=== PATIENT | female | born 1940 | race Caucasian/White ===

== ENCOUNTER 2016-07-05 05:35 | Inpatient (IN) | payer MEDICARE, BC ==
[~2016-07-05 05:35] MED LIST: ALLOPURINOL300 M1 PO; ASPIRIN81 M1 PO; AVAPRO75 MG PO; BONIVA PO; BONIVA150 MG; CARDIZEM CD180 MG PO; CIPRO PO; CO Q-10100 M2 PO; CRESTOR5 MG; DEMADEX20 M1 PO; DEMADEX20 MG; DIETHYLPROPION PO; GABAPENTIN300 MG PO; GLUCOPHAGE500 M3 PO; K-DUR10 MEQ; KLOR-CON 1010 ME1 PO; KLOR-CON M2020 MEQ; LEXAPRO20 M2 PO; LIPITOR10 M1 PO; LIPITOR10 MG; LOSARTAN POTASS25 MG PO; LOVENOX40 MG/0.4 SQ; MULTIVITAMIN; NABUMETONE500 M1 PO; NATURAL TEARS; NEXIUM40 M1 PO; NORCO 5/3251 TAB PO; NORVASC5 MG PO; OMEGA 31 CAP PO; OS-CAL 500+D31 EAC1 PO; PLAVIX75 MG; PREDNISONE10 MG PO; PROZAC10 MG PO; PROZAC20 MG; PROZAC20 MG PO; RESTASIS1 EACH OP; RESTASIS32 EA; SPIRONOLACTONE25 M2 PO; STOOL SOFTENER1 EAC4 PO; TYLENOL325 M2 PO; [UNRECOGNIZED DRUG - OTHER]
[2016-07-06 05:17] LABS: BASO % 0.2 % (0-2); EOS % 0.1 % (0-7); HGB-HEMOGLOBIN 11.1 gm/dl (12.0-15.5); IMMATURE GRANULOCYTES ABSOLUTE 0.03 tho/cmm (0-0.03); IMMATURE GRANULOCYTES PERCENT 0.3 % (0-0.3); LYMPH % 17.1 % (20-45); LYMPH ABSOLUTE COUNT 1.8 tho/cmm (0.8-4.5); MCH (MEAN CORPUSCULAR HGB) 30.1 pg (28.0-32.0); MCHC MEAN CORPUSCULAR HGB CONC 32.6 % (32.0-36.0); MCV (MEAN CELL VOLUME) 92.1 fl (82.0-96.0); MEAN PLATELET VOLUME 10.4 cmc (9.4-12.4); MONO % 11.3 % (0-12); MONOCYTE ABSOLUTE COUNT 1.2 tho/cmm (0.0-1.2); NEUTROPHIL ABSOLUTE COUNT 7.5 tho/cmm (1.6-8.0); NEUTROPHIL-AUTOMATED 7.5 tho/cmm (1.6-8.0); PLATELET COUNT 195 tho/cmm (150-450); RED BLOOD COUNT 3.69 mil/cmm (4.00-5.20); RED CELL DISTRIBUTION WIDTH 13.8 % (12.4-16.4); WHITE BLOOD COUNT 10.5 tho/cmm (4.0-10.0)
[2016-07-06 05:27] LABS: ANION GAP 11 mmol/L (0-20); BLOOD UREA NITROGEN 16 mg/dl (6-24); CALCIUM 8.6 mg/dl (8.5-10.5); CARBON DIOXIDE-VENOUS 29 mmol/L (22-32); CHLORIDE 108 mmol/l (96-110); CREATININE 0.97 mg/dl (0.50-1.10); GLUCOSE 110 mg/dL (70-110); POTASSIUM 4.2 mmol/L (3.7-5.1); SODIUM 144 mmol/L (135-145); eGFR VALUE FOR BLACK 66 mL/Min
[2016-07-08] MEDS ORDERED: NORCO 5-325 TA1 EACH PO (12:46)
[2016-07-08] MEDS ORDERED: DULCOLAX10 MG PR (12:50)
[2016-07-08] MEDS ORDERED: MIRALAX17 G2 PO (12:51)
[2016-11-14] MEDS ORDERED: BYSTOLIC5 M1 PO (10:47)
[2016-11-14] MEDS ORDERED: NEURONTIN300 M1 PO (10:48)
== END 2016-07-08 13:36 | DRG 460 ==
LOC: SHSA 05:35 → ORE 07:33 → PACU 12:29 → 5EB 13:40
PROVIDERS: Internal Medicine; ADMIT Orthopaedic Surgery Orthopaedic Surgery of the Spine
PROC: 0SG00A0 Fusion of Lumbar Vertebral Joint with Interbody Fusion Device, Anterior Approach, Anterior Column, Open Approach (ICD-10-PCS; principal; 2016-07-05)
PROC: 0ST20ZZ Resection of Lumbar Vertebral Disc, Open Approach (ICD-10-PCS; 2016-07-05)
PROC: 0QB00ZZ Excision of Lumbar Vertebra, Open Approach (ICD-10-PCS; 2016-07-05)
DX: M51.16 Intervertebral disc disorders with radiculopathy, lumbar region (principal); J44.9 Chronic obstructive pulmonary disease, unspecified; E11.9 Type 2 diabetes mellitus without complications; I10 Essential (primary) hypertension; M51.26 Other intervertebral disc displacement, lumbar region; M48.06 Spinal stenosis, lumbar region; Z98.1 Arthrodesis status; Z91.81 History of falling; I25.2 Old myocardial infarction; M19.90 Unspecified osteoarthritis, unspecified site; G47.30 Sleep apnea, unspecified; Z88.8 Allergy status to other drugs, medicaments and biological substances; Z87.891 Personal history of nicotine dependence; Z96.653 Presence of artificial knee joint, bilateral; M10.9 Gout, unspecified; F32.9 Major depressive disorder, single episode, unspecified; E78.5 Hyperlipidemia, unspecified; K21.9 Gastro-esophageal reflux disease without esophagitis; I25.10 Atherosclerotic heart disease of native coronary artery without angina pectoris; Z95.5 Presence of coronary angioplasty implant and graft; Z79.84 Long term (current) use of oral hypoglycemic drugs; K59.00 Constipation, unspecified
CPT/HCPCS: C1713; J0690; J2250; J2270